=== PATIENT | male | born 1950 | race Caucasian/White ===

== ENCOUNTER 2016-07-18 06:51 | Day surgery (SDC) | payer OTHER ==
[~2016-07-18 06:51] MED LIST: Lactated Ringers 1,000 ML IV SCH
[2016-07-18] MEDS ORDERED: Propofol 200 MG/20 ML SDV IV ONE (08:00)
[2016-07-18] MEDS ORDERED: Midazolam 1 MG/ML 2 ML SDV IV ONE (08:00)
[2016-07-18] MEDS ORDERED: Lactated Ringers 1,000 ML IV ONE (08:00)
[2016-07-18] MEDS ORDERED: Ketamine 500 mg/10 ML MDV IV ONE (08:00)
[2016-07-18] MEDS ORDERED: ceFAZolin 1 GM Vial IV ONE (08:00)
[2016-07-18] MEDS ORDERED: Ketorolac 30 MG/ML SDV IVPUSH ONE (08:00)
[2016-07-18] MEDS ORDERED: Lidocaine 1% 20 ML MDV INJECT ONE (08:17)
[2016-07-18] MEDS ORDERED: Bupivacaine 0.5% 30 ML SDV INJECT ONE (08:17)
--- NOTE | 2016-07-18 08:24 | PREOP ---
ADMISSION DATE: 07/18/2016 CHIEF COMPLAINT: Lesion of the right thumb. HISTORY OF PRESENT ILLNESS: This is a 65-year-old white male, who has a lesion involving the middle of the nail of his right thumb. It has been present for about a year. It has broken through the nail and destroyed the middle of the nail bed as well as the nail itself. It has the appearance of a granuloma. He does not remember any trauma to the area that is painful and does bleed. He is being offered and accepted excision of this area. MEDICATIONS: At the time of evaluation included. 1. Levothyroxine 50 mcg once per day. 2. Paxil 20 mg once per day. 3. Diovan HCT 60/25 mg tablets one per day. 4. Desyrel 50 mg tablets 1-2 by mouth as needed for bedtime. ALLERGIES: He has no known drug allergies. PAST MEDICAL HISTORY: Significant for sleep apnea, being overweight, essential hypertension, hypothyroidism, and knee arthroplasty. PAST SURGICAL HISTORY: Significant for cholecystectomy and a total knee. FAMILY HISTORY: Significant for history of coronary artery disease with his father and brother. Mother has had some issues with postop bleeding. Sister has a history of a skin cancer as well as diabetes. SOCIAL HISTORY: He is , has three children. He works as rubber production machine operator. He is a former smoker and has approximately 1-2 cans of beer per week. REVIEW OF SYSTEMS: CONSTITUTIONAL: Negative. HEENT: Negative. Eyes, negative. RESPIRATORY: Negative. CARDIOVASCULAR: Negative. GASTROINTESTINAL: Negative. SKIN: Positive for the above mentioned granuloma. PHYSICAL EXAMINATION: GENERAL: This is a well-developed, well-nourished, white male, appearing in no acute distress. HEENT: Grossly within normal limits. LUNGS: Clear to auscultation. HEART: Regular rate and rhythm. ABDOMEN: Soft and nontender. Evaluation of the right thumb reveals what appears to be a scabbed over granuloma involving the middle of the nail on the right thumb. The nail is completely destroyed and he has 2 pieces of nail on either side. ASSESSMENT: Skin granuloma. PLAN: Excision. Procedure and risks explained to the patient, to include bleeding, infection, poor cosmetic result as well as failure of his nail bed to return. The patient expresses understanding and he asked us to proceed. /[id number] /MODL
--- NOTE | 2016-07-18 09:01 | PCM.OPNOTE ---
- General Post-Op/Procedure Note Date of Surgery/Procedure: 07/18/16 Operative Procedure(s): excision of nail bed Findings: nail bed and old granuloma destroyed mid nail right thumb Pre Op Diagnosis: nail bed granuloma Post-Op Diagnosis: Same Anesthesia Technique: Local (2 ml 1 % lido/0.5% buvipicaine), MAC Primary Surgeon: aSnjay Taylor Anesthesia Provider: Valerio Chatterjee Pathology: nail bed Complications: None Condition: Good Free Text/Narrative:: see dictation
--- NOTE | 2016-07-18 09:32 | OR ---
DATE OF OPERATION: 07/18/2016 SURGEON: Sanjay Taylor MD PROCEDURE PERFORMED: Excision of nail bed, right thumb. PREOPERATIVE DIAGNOSIS: Granuloma of the right. POSTOPERATIVE DIAGNOSIS: Granuloma of the right. INDICATIONS FOR PROCEDURE: This is a 65-year-old white male, who has had a 1- year history of a draining granuloma involving his right thumb. This has destroyed the mid portion of his nail. He was offered and accepted excision of the nail bed. DESCRIPTION OF OPERATION: After an excellent IV sedation was administered, 2 mL of a 1:1 mixture of 1% lidocaine without 0.5% bupivacaine was used to infiltrate the nail bed. The nail was removed, and then the scab overlying the granuloma was removed. The underlying nail bed appeared normal, but we did proceed with the excision, as this was a chronic 1-year problem. An elliptical incision was made using a #15 scalpel blade, starting at the base of the degeneration point of the nail and carrying out through the tip of the nail bed. The wound was then closed with a running 3-0 nylon. Bacitracin was applied, and the wound was dressed. The patient was taken to recovery room in good condition having tolerated the procedure well. /[id number] HUBERT/RAINER
[2016-07-18 13:31] VITALS: BP 118/81
--- NOTE | 2016-07-19 07:32 | PCM.SN ---
- Free Text/Narrative Note: Late Entry: 07/18/16 @ 0812 3 grams Ancef IV given per request of Dr. Taylor.
== END 2016-07-18 10:25 | disposition home or self-care (01) ==
LOC: FB.SDS 06:51
PROVIDERS: ATTEND Surgery
DX: L92.8 Other granulomatous disorders of the skin and subcutaneous tissue (principal); G47.30 Sleep apnea, unspecified; I10 Essential (primary) hypertension; E03.9 Hypothyroidism, unspecified; Z90.49 Acquired absence of other specified parts of digestive tract; E66.3 Overweight; Z98.890 Other specified postprocedural states; Z79.899 Other long term (current) drug therapy; Z87.891 Personal history of nicotine dependence
CPT/HCPCS: 11750; J0690; J1885; J2250; J2704; J7120

== ENCOUNTER 2019-01-22 06:44 | Day surgery (SDC) | payer MEDICARE, OTHER ==
[2019-01-22] MEDS ORDERED: Lactated Ringers 1,000 ML IV SCH (06:45)
[2019-01-22] MEDS ORDERED: Lidocaine 2% 100 MG/5 ML Syringe IVPUSH ONE (06:45)
[2019-01-22] MEDS ORDERED: Sodium Chloride 0.9% 10 ML Syringe FLUSH PRN (06:45)
[2019-01-22] MEDS ORDERED: Propofol 200 MG/20 ML SDV IV ONE (06:45)
--- NOTE | 2019-01-22 08:27 | PCM.OPNOTE ---
- General Post-Op/Procedure Note Date of Surgery/Procedure: 01/22/19 Operative Procedure(s): c scope Findings: normal colonoscopy Pre Op Diagnosis: screening Post-Op Diagnosis: normal exam Anesthesia Technique: MAC Primary Surgeon: Sanjay Taylor Anesthesia Provider: Jena Sahu Pathology: none Complications: None Condition: Good Free Text/Narrative:: see dictation
[2019-01-22 08:59] VITALS: BP 123/72; PULSE 72
--- NOTE | 2019-01-23 08:37 | OR ---
DATE OF OPERATION: 01/22/2019 SURGEON: Sanjay Taylor MD PROCEDURE PERFORMED: Colonoscopy. PREOPERATIVE DIAGNOSIS: Need for screening C-scope. POSTOPERATIVE DIAGNOSIS: Normal exam. INDICATIONS FOR PROCEDURE: This gentleman presents for followup screening colonoscopy. His last scope was 10 years ago and was unremarkable. DESCRIPTION OF OPERATION: After an excellent IV sedation was administered, digital rectal exam was performed. No marked abnormality was noted. The flexible colonoscope was inserted and advanced to the cecum. The prep was excellent. The following findings were noted. Ascending colon, unremarkable. Transverse colon, unremarkable. Descending colon, unremarkable. Sigmoid and rectum, unremarkable. The colon was deflated, and the scope was removed. The patient tolerated the procedure well. Repeat scope in 10 years. /[id number] HUBERT/RAINER
== END 2019-01-22 08:55 | disposition home or self-care (01) ==
LOC: FB.SDS 06:44
PROVIDERS: ATTEND Surgery
DX: Z12.11 Encounter for screening for malignant neoplasm of colon (principal); I10 Essential (primary) hypertension; I83.90 Asymptomatic varicose veins of unspecified lower extremity; E11.9 Type 2 diabetes mellitus without complications; E03.9 Hypothyroidism, unspecified; E66.9 Obesity, unspecified; H52.223 Regular astigmatism, bilateral; H52.11 Myopia, right eye; G47.33 Obstructive sleep apnea (adult) (pediatric); Z68.39 Body mass index [BMI] 39.0-39.9, adult; Z99.89 Dependence on other enabling machines and devices; Z87.891 Personal history of nicotine dependence; Z79.84 Long term (current) use of oral hypoglycemic drugs; Z79.899 Other long term (current) drug therapy
CPT/HCPCS: 82962; G0121; J2001; J2704; J7120

== ENCOUNTER 2022-06-08 04:36 | Emergency (ER) | payer MEDICARE ==
[2022-06-08 05:07] LABS: ESTIMATED GFR 50 mL/min (>60)
[2022-06-08 06:38] VITALS: BP 122/94; PULSE 120
[2022-06-08] MEDS ORDERED: cefTRIAXone 2 GM Vial IVPUSH ONE (06:55)
[2022-06-08] MEDS ORDERED: Azithromycin 500 MG in Sodium Chloride 0.9% 250 ML IV ONE (06:55)
[2022-06-08] MEDS ORDERED: Sodium Chloride 0.9% 1,000 ML IV SCH (07:00)
[2022-06-08 07:11] LABS: CORONAVIRUS COVID-19 NAA NEGATIVE (NEGATIVE)
[2022-06-08] MEDS ORDERED: Acetaminophen/oxyCODONE 325-5 MG Tab PO PRN (08:06)
[2022-06-08] MEDS ORDERED: Albuterol/Ipratropium 3.0-0.5 MG/3 ML Neb Soln NEB ONE (09:20)
[2022-06-08] MEDS ORDERED: Morphine 4 MG/ML VIAL IVPUSH ONE (09:40)
== END 2022-06-08 14:22 ==
LOC: FB.ED 04:36
DX: C43.60 Malignant melanoma of unspecified upper limb, including shoulder (principal); J18.9 Pneumonia, unspecified organism; G93.40 Encephalopathy, unspecified; R09.02 Hypoxemia; I10 Essential (primary) hypertension; E03.9 Hypothyroidism, unspecified; E66.9 Obesity, unspecified; Z79.899 Other long term (current) drug therapy; Z79.4 Long term (current) use of insulin; Z20.822 Contact with and (suspected) exposure to COVID-19; Z68.38 Body mass index [BMI] 38.0-38.9, adult
CPT/HCPCS: 0241U; 36415; 70450; 71045; 80053; 80307; 81001; 83605; 83880; 84443; 85025; 85379; 86140; 87040; 94640; 96361; 96365; 96375; 99285; 99285-25; A9270-GY; J0456; J0696; J2270; J7030; J7050; J7620

== ENCOUNTER 2022-10-15 09:14 | Inpatient (IN) | payer MEDICARE, OTHER ==
[2022-10-15] MEDS ORDERED: LORazepam 0.5 MG Tab PO ONE (10:30)
[2022-10-15] MEDS ORDERED: Morphine 10 MG/0.5 ML Oral Syringe SL ONE (10:30)
[2022-10-15 10:52] VITALS: BP 103/53; PULSE 127
[2022-10-15] MEDS ORDERED: Hyoscyamine 0.125 MG Tab.SL *PTOM PO PRN (11:02)
[2022-10-15] MEDS ORDERED: Ondansetron 4 MG Tab.DIS *PTOM PO PRN (11:02)
[2022-10-15] MEDS ORDERED: LORazepam 0.5 MG Tab PO PRN (11:03)
[2022-10-15] MEDS ORDERED: Bisacodyl 10 MG Supp RECTAL PRN (11:07)
[2022-10-15] MEDS: Morphine 10 MG/0.5 ML Oral Syringe SL PRN ×3 (11:51→14:20)
[2022-10-15] MEDS ORDERED: HCTZ PO SCH (12:00)
[2022-10-15] MEDS ORDERED: VALSARTAN PO SCH (12:00)
[2022-10-15] MEDS ORDERED: PAROXETINE 20 MG PO SCH (12:00)
[2022-10-15] MEDS ORDERED: Dexamethasone 4 MG Tab PO SCH (12:00)
[2022-10-15] MEDS: Haloperidol Lactate 2 MG/ML Oral Soln 15 ML Bottle PO PRN (12:53)
[2022-10-15] MEDS: Morphine 10 MG/0.5 ML Oral Syringe SL SCH ×4 (15:57→22:21)
[2022-10-15] MEDS ORDERED: Haloperidol Lactate 2 MG/ML Oral Soln 15 ML Bottle PO SCH (17:00)
[2022-10-15] MEDS ORDERED: traZODone 100 MG Tab *PTOM PO SCH (21:00)
[2022-10-16] MEDS: Haloperidol Lactate 2 MG/ML Oral Soln 15 ML Bottle PO PRN (01:12)
[2022-10-16] MEDS ORDERED: LORazepam 0.5 MG Tab PO SCH (09:00)
== END 2022-10-16 01:45 | disposition expired | DRG 951 ==
LOC: FB.MS 09:42
PROVIDERS: ADMIT Family Medicine; ATTEND Family Medicine
DX: Z51.5 Encounter for palliative care (principal); Z75.5 Holiday relief care
CPT/HCPCS: A9270-GY; Q5005